=== PATIENT | female | born 1960 | race Caucasian/White ===

== ENCOUNTER 2024-06-14 14:14 | Outpatient (CLI) | payer OTHER, SELFPAY ==
--- NOTE | 2024-06-14 14:18 | US_ITS ---
FINAL REPORT CLINICAL HISTORY: claudication, DM, HTN, HLD, left rest pain, hx MS, CAD. FINDINGS: LOWER EXTREMITY SEGMENTAL PRESSURE MEASUREMENTS FINDINGS: Pressure indices are as follows: RIGHT LOWER EXTREMITY: Thigh: 1.08 Calf: 1.09 Ankle, posterior tibial artery: 0.94 Ankle, dorsalis pedis: 0.99 Toe: 0.74 GREGOR: 0.99 Comments: Within normal limits LEFT LOWER EXTREMITY: Thigh: 1.12 Calf: 1.25 Ankle, posterior tibial artery: 1.01 Ankle, dorsalis pedis: 1.0 Toe: 0.81 GREGOR: 1.03 Comments: Within normal limits IMPRESSION: No evidence of peripheral vascular disease. Reviewed, Interpreted and Dictated by Dhiraj Santo MD Transcribed by Krystal Betts Authenticated and [facility]
--- NOTE | 2024-06-14 14:18 | CA_ITS ---
APPROVED REPORT EXAM: Comprehensive 2D, Doppler, and color-flow Echocardiogram Coordinator Of Genetic Services: Kathrin Bourgeois RT(R) Ht: 5 ft 3 in Wt: 136lbs BSA: 1.64 BP: 109/67 mmHg Indications: dyspnea, HTN, hyperlipidemia, SOB, TEMPLETNO, DM. 2D Dimensions LVEF (Velasco's) 62.10 % F: 54 - 74 LV Volume 74.50 mL F: 46 - 106 LV Volume Index 45.4 mL/m2 F: 29 - 61 LA Volume 17.90 mL LA Volume Index 10.91 mL/m2 (M/F) 16-34 EF AP4 60.50 % EF AP2 60.7 % EF BP 62.1 % GL Strain -19.5 % M-Mode Dimensions RVDd 2.76 cm (0.9-2.6) LA Diam 3.47 cm (1.9-4.0) LVDd 4.08 cm (3.5-5.7) LVDs 3.08 cm (3.5-5.7) IVSd 0.88 cm (0.6-1.1) PWd 0.88 cm (0.6-1.1) EF (Teich) 49.20% FS 24.50% EDV (Teich) 73.40 mL ESV (Teich) 37.30 mL LV Diastology E Decel Time 180 (160-240 msec) E/A Ratio 0.8 Mitral Valve MV E Max Iban. 60.0 (40-130 cm/s) MV A Velocity 79.0 (40-130 cm/s) E/A Ratio 0.76 MV PHT 53.0 ms Left Ventricle The left ventricle is normal size. The left ventricular systolic function is normal. The left ventricular ejection fraction is within the normal range. There is increased LV wall thickness. There is normal LV segmental wall motion. The left ventricular diastolic function is normal. LVEF is 55%. Right Ventricle The right ventricle is mildly dilated. The right ventricular systolic function is normal. Atria TheLeft atrium is mildly dilated. Right atrium is mildly dilated. There is no Doppler evidence of interatrial shunt. Aortic Valve The aortic valve is mildly thickened. There is no aortic valvular stenosis. Trace aortic regurgitation. Mitral Valve The mitral valve is normal in structure. No evidence of mitral valve stenosis. Trace mitral regurgitation. Tricuspid Valve Tricuspid valve is grossly normal in structure and function. Trace mitral regurgitation. There is insufficient TR jet to estimate RVSP. Pulmonic Valve The pulmonary valve is normal in structure. Trace pulmonic regurgitation. Great Vessels The aortic root is normal in size. IVC is normal in size and collapses >50% with inspiration. Pericardium There is no pericardial effusion. Other Information Study Quality: Fair Conclusion Normal biventricular systolic function. Mild RV dilation. Mild biatrial dilation. No significant valvular stenosis or regurgitation. Electronically signed by : Loulou Laureano MD 06/20/2024 01:07:03
== END 2024-06-14 23:59 | disposition home or self-care (01) ==
LOC: RT 14:15
PROVIDERS: PCP Nurse Practitioner Family; Visit Provider Physician Assistant
DX: I73.9 Peripheral vascular disease, unspecified (principal); I51.7 Cardiomegaly; I25.118 Atherosclerotic heart disease of native coronary artery with other forms of angina pectoris; R06.09 Other forms of dyspnea; R07.89 Other chest pain
CPT/HCPCS: 93306; 93923

== ENCOUNTER 2024-06-21 11:34 | Outpatient (CLI) | payer OTHER, SELFPAY ==
[2024-06-21 09:42] VITALS: BMI 24.0
--- NOTE | 2024-06-21 11:34 | CT_ITS ---
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 A noncontrast coronary calcium scan was performed. A CT attenuation threshold of 130 Hounsfield units (HU) was used for the detection of calcium in contiguous voxels of 1 sq mm in area to be counted as individual lesions. Bolus tracking in the ascending aorta with a threshold of 180 HU was performed. Immediately afterwards, ECG synchronized cardiac CT was then performed from the cardiac base to apex using retrospective gating with ECG tube current modulation. A total of 85 mL of Isovue 370 mg/mL contrast medium was administered at 5 mL/sec followed by a saline flush using a biphasic injection protocol. A tube voltage of 120 KVp was used. The patient received the following medications prior to the cardiac CT. 0.4 mg of sublingual nitroglycerin The average heart rate at the time of acquisition was 58 bpm and regular. Image Reconstruction Transaxial images were reconstructed at 0.67 mm slide thickness. Data was reviewed interactively on an advanced workstation capable of 2 and 3-dimensional displays in all conventional reconstruction formats, including multiplanar reformations, maximum intensity projections, curved multiplanar reformations, and volume rendered reconstructions. When applicable, selected routine images describing the relevant coronary anatomy and pathology were saved and sent to PACS. Complications None Technical Quality Overall image quality was good. Coronary artery opacification was adequate. Total DLP (Dose-Length Product) is 1462.5 mGy-cm. The reported value represents the total of one or more individual components during the CT acquisition of this date and at this time, and as such, the same value may appear in more than one CT report depending on the interpreting/reporting physicians. COMPARISON None FINDINGS CT Coronary Calcium Scoring not performed due to prior history of stenting. The interpretation of the calcium heart score is based on the following continuum*: 0 = no calcified plaque detected (risk of coronary artery disease is very low ??? less than 5%) 1-10 = calcium detected in extremely minimal levels (risk of coronary diseases is still low ??? less than 10%) 11-100 = mild levels of plaque detected with certainty (mild or minimal narrowing of heart arteries is likely) 101-400 = definite,at least moderate levels of plaque detected (relatively high risk of a heart attack within 3-5 years) >401-999 = extensive levels of plaque detected (high risk of heart attack, high levels of vascular disease are present, high likelihood of at least one significant coronary narrowing) *The calcium heart score quantifies the burden of coronary calcification/plaque in the coronary arteries. The calcium heart score is not able to evaluate the presence or burden of non-calcified (i.e. soft) plaque. There is also calcification in the aortic valve, mitral annulus, and the ascending, transverse, and descending thoracic aorta. Coronary CT Angiography The coronary arterial system is right dominant. Quantitative Stenosis Grading: Left Main (LM): The left main originates normally from the left sinus of Valsalva. The LM bifurcates into the left anterior descending artery and left circumflex artery. There is a focus of calcified plaque in the mid LM segment, with no evidence of luminal stenosis. Left Anterior Descending (LAD) and Diagonal Branches: The LAD gives off 3 diagonal branch(es). There is a stent in the proximal segment of the LAD. The stented region is not very well-visualized, but grossly appears to be patent with no evidence of luminal obstruction. Immediately in the post stenting region and in the mid-LAD segment distal to the stent, there is mixed calcified/noncalcified plaque, with up to 50-70% luminal stenosis. There is no evidence of LAD-myocardial bridge. Left Circumflex (LCX) and Obtuse Marginals (OM): The LCX gives off 1 Obtuse Marginal (OM) branch(es). The LCX and its branches are patent with no evidence of atherosclerosis. Right Coronary Artery (RCA): The RCA originates normally from the right sinus of Valsalva. The RCA gives off a posterior descending artery (PDA) and posterolateral (PL) branches. There is mild non-calcified plaque in the ostial RCA segment, with up to 25-49% luminal stenosis. Non-Coronary Cardiac Findings: Analysis of the left ventricular (LV) structure and function was performed after 3-D reconstruction of the LV from axial images, with user-corrected automatic contouring for assessment of LV volumes and user-defined reconstruction from oblique planes for measurement of 3-D cardiac structure and function. -The left ventricle systolic function is normal. -There is no left atrial appendage filling defect. Two right pulmonary veins and two left pulmonary veins drain normally into the left atrium. -No pericardial thickening or calcification. -Central and branch pulmonary arteries in the [id number] are unremarkable. -Thoracic aorta within the visualized thoracic aortic-branches in the [id number] is unremarkable. Extracardiac Structures No significant extra-cardiac findings. Note, however, that this study is focused on the cardiac findings. IMPRESSION -Calcium scoring is not performed due to prior history of stenting. There is a stent in the proximal segment of the LAD. The stented region is not very well-visualized, but grossly appears to be patent with no evidence of luminal obstruction. Immediately in the post stenting region and in the mid-LAD segment distal to the stent, there is mixed calcified/noncalcified plaque, with up to 50-70% luminal stenosis. -There is also mild non-calcified plaque in the ostial RCA segment, with up to 25-49% luminal stenosis. -Possible evidence of significant flow-limiting atherosclerosis of the proximal/mid LAD segment distal to the stented region. -CAD-RADS 3. Management recommendations per ACC/AHA guidelines*, as clinically appropriate. *Recommendations: CAD RADS 0: Reassurance. Consider non-atherosclerotic causes of chest pain. CAD RADS 1: Consider non-atherosclerotic causes of chest pain. Consider preventive therapy and risk factor modification. CAD RADS 2: Consider non-atherosclerotic causes of chest pain. Consider preventive therapy and risk factor modification, particularly for patients with nonobstructive plaque in multiple segments. CAD RADS 3: Consider further functional testing. Consider symptom-guided anti-ischemic and preventive pharmacotherapy as well as risk factor modification per published guideline statements. CAD RADS 4A: Consider further functional testing or invasive coronary angiography with revascularization per published guideline statements. Consider symptom-guided anti-ischemic and preventive pharmacotherapy as well as risk factor modification per published guideline statements. CAD RADS 4B: Invasive coronary angiography recommended with revascularization per published guideline statements. Consider symptom-guided anti-ischemic and preventive pharmacotherapy as well as risk factor modification per published guideline statements. CAD RADS 5: Consider invasive angiography and/or viability assessment with revascularization per published guideline statements. Consider symptom-guided anti-ischemic and preventive pharmacotherapy as well as risk factor modification per published guideline statements. CRITICAL RESULT None COMMUNICATION Per this written report The coronary and cardiac findings of this CCTA were reviewed, reported, and signed by Fercho Laureano MD (Pharmacy General Manager) Conclusion Electronically signed by : Loulou Laureano MD 06/23/2024 12:01:24
[2024-06-21 11:47] VITALS: BP 135/75; PULSE 59; RESP 18; TEMP 36.5; O2SAT 100; BMI 24.0
[2024-06-21 12:00] LABS: Chloride 101 mmol/L (98-107); Sodium 138 mmol/L (136-145)
[2024-06-21 12:01] LABS: Potassium 4.7 mmoL/L (3.5-5.1)
[2024-06-21 12:03] LABS: Blood Urea Nitrogen 15 mg/dl (7-17); Creatinine Clearance Estimated 50 mL/min (50-200); Estimated Glomerular Filt Rate 50 ml/min (>60); GFR (African American) 61 ML/MIN (>60)
[2024-06-21 12:04] LABS: Anion Gap 13.7 mEq/L (5-15); Calcium 9.6 mg/dl (8.4-10.2); Carbon Dioxide 28 mmol/L (22.0-30.0); Glucose 98 mg/dl (74-100)
[2024-06-21 13:05] VITALS: BP 155/85; PULSE 60; RESP 18; O2SAT 100
[2024-06-21] MEDS: NITROGLYCERIN 0.4MG SL TABLET SL (13:05)
[2024-06-21 13:10] VITALS: BP 133/73; PULSE 60; RESP 18; O2SAT 100
[2024-06-21] MEDS: SODIUM CHLORIDE 0.9% 10ML SYR (RAD ONLY) 10 ML IV (13:10)
[2024-06-21] MEDS: IOPAMIDOL-370 (76%);100ML BOTTLE 85 ML IV (13:10)
[2024-06-21] MEDS: 0.9 % SODIUM CHLORIDE 50 ML VIAL IV (13:11)
[2024-06-21 13:20] VITALS: BP 100/60; PULSE 65; RESP 18; O2SAT 95
[2024-06-21 13:25] VITALS: BP 106/62; PULSE 65; RESP 18; O2SAT 95
== END 2024-06-21 13:25 | disposition home or self-care (01) ==
PROVIDERS: PCP Nurse Practitioner Family; Visit Provider Physician Assistant
DX: I25.118 Atherosclerotic heart disease of native coronary artery with other forms of angina pectoris (principal); R06.09 Other forms of dyspnea; R07.89 Other chest pain
CPT/HCPCS: 75574; 80048; Q9967

== ENCOUNTER 2024-07-07 11:44 | Emergency (ER) | payer OTHER, SELFPAY ==
[2024-07-07] VITALS (8 sets, daily range): BP systolic 129–173; BP diastolic 46–76; PULSE 56–67; RESP 12–19; TEMP 36.7–36.8; O2SAT 98–100; BMI 23.6
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
[2024-07-07 12:42] LABS: Appearance,Urine CLEAR (Clear); Bilirubin,Urine Negative (Negative); Blood, Urine Negative (Negative); Color,Urine YELLOW (Yellow); Glucose,Urine (UA) TRACE (Negative); Ketones,Urine Negative (Negative); Leukocyte Esterase,Urine 2+ (Negative); Microscopic, Urine URINE MICROSCOPIC (MICROSCOPIC); Nitrate,Urine Negative (Negative); Protein,Urine Negative (Negative); Specific Gravity, Urine >= 1.030 (1.005-1.030); Urobilinogen,Urine 0.2 EU/dl (0.2)
[2024-07-07 12:42] LABS: Basophils % 0.5 % (0.1-2.0); Eosinophils # 0.1 K/mm3 (0.0-0.4); Eosinophils % 0.8 % (0.1-12.0); Hematocrit 42.5 % (37.0-47.0); Hemoglobin 13.9 g/dL (12.2-16.2); Lymphocytes # 2.1 K/mm3 (0.7-4.5); Lymphocytes % 32.4 % (10-50); Mean Corpuscular HGB Conc 32.7 g/dL (31.8-35.4); Mean Corpuscular Hemoglobin 28.7 pg (27.0-31.2); Mean Corpuscular Volume 87.6 fl (81-99); Mean Platelet Volume 10.1 fl (7.4-10.4); Monocytes # 0.5 K/mm3 (0.1-1.0); Monocytes % 7.9 % (1.7-9.3); Neutrophils # 3.8 K/mm3 (1.8-7.8); Neutrophils % 58.1 % (37.0-80.0); Platelet Count 284 K/mm3 (142-424); Red Blood Count 4.85 M/mm3 (4.20-5.40); Red Cell Distribution Width 13.2 % (11.5-17.5); White Blood Count 6.5 K/mm3 (4.8-10.8)
--- NOTE | 2024-07-07 12:42 | ECG_ITS ---
APPROVED REPORT Exam: Resting ECG HR:59 bpm ECG Measurements Heart Rate 59 AXES RI 159 P 39 QRSd 105 QRS -14 QT 399 T 44 QTc 399 Conclusion SINUS BRADYCARDIA BORDERLINE ECG UNCONFIRMED REPORT Electronically signed by : RHODA COREA, 07/08/2024 06:56:27
[2024-07-07] MEDS: 0.9 % SODIUM CHLORIDE 1000ML 1,000 ML 999 ML IV (12:48)
[2024-07-07 12:52] LABS: INR 0.95 (0.9-1.1); Prothrombin Time 10.7 seconds (10.1-12.5)
[2024-07-07 12:59] LABS: Alanine Aminotransferase 16 U/L (12-78); Albumin/Globulin Ratio 1.7 (1.1-1.8); Alkaline Phosphatase 58 U/L (38-126); Anion Gap 14.2 mEq/L (5-15); Aspartate Amino Transferase 30 U/L (14-36); Bilirubin,Total 0.4 mg/dl (0.2-1.3); Blood Urea Nitrogen 23 mg/dl (7-17); Calcium 9.8 mg/dl (8.4-10.2); Carbon Dioxide 27 mmol/L (22.0-30.0); Chloride 104 mmol/L (98-107); Creatinine Clearance Estimated 54 mL/min (50-200); Estimated Glomerular Filt Rate 63 ml/min (>60); GFR (African American) 76 ML/MIN (>60); Globulin 2.9 g/dL (1.3-3.2); Glucose 115 mg/dl (74-100); Lipase 329 U/L (23-300); Magnesium 1.4 mg/dl (1.6-2.3); Potassium 4.2 mmoL/L (3.5-5.1); Sodium 141 mmol/L (136-145); Total Protein,Serum 7.9 g/dl (6.3-8.2)
[2024-07-07 13:05] LABS: Amphetamine/Metha Screen,Urine Negative ng/ml (<1000)
[2024-07-07 13:06] LABS: Barbiturates Screen,Urine Negative ng/ml (<200); Benzodiazepines Screen,Urine Negative ng/ml (<200)
[2024-07-07 13:07] LABS: Acetaminophen < 10 ug/ml (10-30); Cannabinoid Screen,Urine Negative ng/ml (<50); Cocaine Screen,Urine Negative ng/ml (<300); Salicylate < 1.0 mg/dL (2.0-20.0)
[2024-07-07 13:08] LABS: Ethyl Alcohol < 10 mg/dl (0-10); Methadone Screen,Urine Negative ng/ml (<300)
[2024-07-07 13:09] LABS: Opiate Screen,Urine Negative ng/ml (<300); Phencyclidine Screen,Urine Negative ng/ml (<25)
[2024-07-07 13:11] LABS: Ammonia < 9 umol/L (9-30)
[2024-07-07 13:16] LABS: Procalcitonin 0.081 ng/mL (0.0-2.0)
--- NOTE | 2024-07-07 13:16 | CT_ITS ---
FINAL REPORT TECHNIQUE: IV contrast enhanced exam This study was performed with techniques to keep radiation doses as low as reasonably achievable, (ALARA). Individualized dose reduction techniques using automated exposure control or adjustment of mA and/or kV according to the patient''s size were employed. CLINICAL HISTORY: Elevated lipase, altered mental status FINDINGS: Abdomen: No acute density is seen within the lung bases. The gallbladder is unremarkable. Solid abdominal organs are unremarkable. Specifically, there are no CT changes of pancreatitis. No bowel obstruction is present. There is no free air. No fluid collection is seen. There is no adenopathy. Pelvis: The appendix is normal. No bowel wall thickening is present. The uterus is retroverted. There is no free fluid. No pelvic mass is seen. IMPRESSION: No CT findings of pancreatitis or other acute process. Reviewed, Interpreted and Dictated by Dhiraj Santo MD Transcribed by Princess Dee Authenticated and [facility]
[2024-07-07 13:17] LABS: Free Thyroxine Index 3.5 ug/dL (5.93-13.13); T4 (Thyroxine) 12.6 ug/dl (5.53-11.0); Triiodothryronine (T3) Uptake 28 % (23.5-40.5); Troponin I < 0.01 ng/ml (0.00-0.034)
[2024-07-07 13:17] LABS: RBC,Urine Occasional #/hpf (0-3); Transitional Epi Cells,Urine OCC #/lpf (0-3)
[2024-07-07 13:31] LABS: Thyroid Stimulating Hormone 2.24 uIU/mL (0.465-4.68)
[2024-07-07] MEDS: SODIUM CHLORIDE 0.9% 10ML SYR (RAD ONLY) 10 ML IV (13:31)
[2024-07-07] MEDS: IOPAMIDOL-370 (76%);100ML BOTTLE 75 ML IV (13:32)
[2024-07-07] MEDS: MAGNESIUM SULFATE IN WATER 2 GM/50 ML PIGGYBACK IV (13:35)
[2024-07-07 14:18] LABS: HIV Combo NEGATIVE (Negative)
[2024-07-07 14:27] LABS: Hepatitis C Ab Qual. W/ RFX NEGATIVE (Negative)
== END 2024-07-07 14:45 | disposition home or self-care (01) ==
PROVIDERS: Physician Assistant; Emergency Provider Emergency Medicine; PCP Nurse Practitioner Family
DX: G93.40 Encephalopathy, unspecified (principal); R41.82 Altered mental status, unspecified; V87.7XXA Person injured in collision between other specified motor vehicles (traffic), initial encounter
CPT/HCPCS: 70450; 72125; 74177; 80053; 80307; 80320; 80329; 81001; 82140; 83690; 83735; 84145; 84436; 84443; 84479; 84484; 85025; 85610; 86803; 87086; 87389; 93005; 96361; 96365; 99291; G0480; J3475; J7030; Q9967

== ENCOUNTER 2024-07-12 08:41 | Day surgery (SDC) | payer OTHER, SELFPAY ==
[2024-07-12] VITALS (15 sets, daily range): BP systolic 120–146; BP diastolic 73–87; PULSE 64–75; RESP 16–20; TEMP 36.7; O2SAT 93–100; BMI 23.9
--- NOTE | 2024-07-12 07:22 | IR_ITS ---
APPROVED REPORT [facility] Director: LUKE Perez RT (R) PROCEDURES Left heart catheterization Left ventriculogram Selective coronary angiogram Drug-eluting stent deployment to the proximal and mid circumflex artery Intravascular ultrasound of the LAD Drug-eluting stent deployment to the proximal and mid LAD INDICATION Coronary artery disease, Angina pectoris, LAD IVUS MLA of 3.3 mm???, Underexpanded stent in the proximal LAD Informed consent was obtained prior to the procedure. COMPLICATIONS NONE Estimated Blood Loss: LESS THAN 10 ML TECHNIQUE One percent lidocaine used to anesthetize the right anterior aspect of the wrist. The right radial artery was accessed via the Seldinger technique. A 6 Danish sheath was placed in the right radial artery. 2.5 mg of Verapamil, 800 mcg of nitroglycerin, 1mg Lidocaine and 5000 U Heparin were given through the arterial sheath. The 6 Danish JL 3 guide catheter was also used to perform left heart catheterization, left ventriculogram and selective coronary angiogram. At the end the diagnostic angiogram therapeutic heparin was administered giving a therapeutic ACT and the guide catheter was placed in left main artery followed by Choice PT after support wire down the circumflex artery. A 2.25 x 26 mm Ostrander frontier stent was deployed at 18 diana reducing the stenosis to 0%. BRETT-3 flow was present before and after the procedure. Excellent angiograph results were obtained. Following this the wire was pulled back and placed into the LAD where intravascular ultrasound probe was advanced. The stent in the proximal segment was significantly undersized with poor apposition to the vessel wall. There was additional moderate to severe plaque distal with an MLA of 3.3 mm???. Because of this a 3 mm x 34 mm Daniel frontier stent was deployed at 18 diana in the proximal LAD reducing the stenosis. An additional 3.0 x 26 mm Daniel frontier stent was placed proximal to this extending back into the ostium of the LAD and deployed at 24 diana reducing the stenosis to 0%. BRETT-3 flow was present before and after the procedure. 800 mcg of intracoronary nitroglycerin was administered after the procedure after achieving excellent angiograph results the apparatus was removed the sheath was removed and hemostasis was achieved using TR banding patient was transferred to the postop putting in stable condition ANGIOGRAPHIC RESULTS The left main artery Normal The left anterior descending artery Has a stent in the ostial proximal segment which is significantly undersized. There are additional proximal angiographic indeterminant stenoses between 50 and 70% which proved to be tighter with IVUS. There are additional 30% mid vessel stenoses The circumflex artery Nondominant and has proximal to mid vessel 70% stenosis The right coronary artery Large dominant normal The AVELAR ventriculogram reveals Normal 65% The left ventricular end-diastolic pressure 15 mmHg IMPRESSION Severe disease in the proximal LAD as described above with successful stenting reducing multiple lesions and dilating a previous stent to a larger lumen with 2 contiguous drug-eluting stents Severe disease in the proximal to mid circumflex artery with successful stenting reducing lesion to 0% with 1 drug-eluting stent Normal ejection fraction Normal LVEDP PLAN 1. Dual antiplatelet therapy 2. Add Imdur 30 mg daily 3. LDL less than 55 to be achieved with high intensity statin 4. Avoidance of tobacco products 5. Cardiac rehabilitation Electronically signed by : Usman Dowling MD 07/12/2024 12:08:14
[2024-07-12 09:14] LABS: Basophils % 0.4 % (0.1-2.0); Eosinophils # 0.1 K/mm3 (0.0-0.4); Eosinophils % 0.7 % (0.1-12.0); Hematocrit 40.9 % (37.0-47.0); Hemoglobin 13.6 g/dL (12.2-16.2); Lymphocytes # 2.4 K/mm3 (0.7-4.5); Lymphocytes % 34.6 % (10-50); Mean Corpuscular HGB Conc 33.3 g/dL (31.8-35.4); Mean Corpuscular Hemoglobin 29.2 pg (27.0-31.2); Mean Corpuscular Volume 87.8 fl (81-99); Mean Platelet Volume 9.9 fl (7.4-10.4); Monocytes # 0.5 K/mm3 (0.1-1.0); Platelet Count 255 K/mm3 (142-424); Red Blood Count 4.66 M/mm3 (4.20-5.40); Red Cell Distribution Width 13.3 % (11.5-17.5)
[2024-07-12 09:22] LABS: Chloride 104 mmol/L (98-107); Sodium 141 mmol/L (136-145)
[2024-07-12 09:25] LABS: Blood Urea Nitrogen 14 mg/dl (7-17); Calcium 9.6 mg/dl (8.4-10.2); Carbon Dioxide 29 mmol/L (22.0-30.0); Creatinine Clearance Estimated 55 mL/min (50-200); Estimated Glomerular Filt Rate 56 ml/min (>60); GFR (African American) 68 ML/MIN (>60); Glucose 86 mg/dl (74-100)
[2024-07-12] MEDS: VERAPAMIL 2.5MG/ML 2ML VIAL 2.5 MG IV (11:05)
[2024-07-12] MEDS: HEPARIN 1,000 UNITS/500ML NS (CATH LAB) 3000 UNIT IV (11:05)
[2024-07-12] MEDS: diphenhydrAMINE 50MG/ML VIAL 50 MG IV (11:05)
[2024-07-12] MEDS: LIDOCAINE 1% 10ML MDV 20 ML IJ (11:06)
[2024-07-12] MEDS: HEPARIN 1,000 UNITS/ML 10ML VIAL (CATH LAB) 10000 UNIT IV (11:06)
[2024-07-12] MEDS: NITROGLYCERIN 800MCG/8ML SYR (CATH LAB) 800 MCG IA (11:06)
[2024-07-12] MEDS: 0.9 % SODIUM CHLORIDE 500 ML 25 ML IV (11:06)
[2024-07-12] MEDS: MIDAZOLAM HCL 1MG/ML 5ML VIAL 1 MG IV (11:08)
[2024-07-12] MEDS: FENTANYL 100MCG/2ML VIAL 25 MCG IV (11:08)
[2024-07-12] MEDS: CLOPIDOGREL 75MG TAB 75 MG PO (12:13)
[2024-07-12] MEDS: IOPAMIDOL-370 (76%);100ML BOTTLE 120 ML IV (13:29)
[2024-07-12 13:37] LABS: CATHL Activated Clotting Time 306 SEC (74-125)
--- NOTE | 2024-07-12 15:15 | SUR.PHASEII ---
Upon d/c pt and putting her in a wheelchair pt began to c/o seeing double vision, pupils sluggish to reaction and uneven, Dr Dowling notified, stated to order stat head ct and notify dr monge of admission. Pt denies any other s/s, has no noticeable deficits, hand placing judge equal, ataxia in intact. VSS, see chart.
--- NOTE | 2024-07-12 15:25 | CT_ITS ---
FINAL REPORT TECHNIQUE: Axial CT images were performed through the head. Coronal reformatted images were submitted. This study was performed with techniques to keep radiation doses as low as reasonably achievable (ALARA). Individualized dose reduction techniques using automated exposure control or adjustment of mA and/or kV according to the patient's size were employed. CLINICAL HISTORY: double vision post cath, possible stroke COMPARISON: 07/07/2024 FINDINGS: Mild atrophy is noted. There is no evidence of hemorrhage. There is no mass or edema identified. There is no abnormal extra-axial fluid seen. There are polyps or retention cysts in the maxillary sinuses consistent with chronic sinusitis. IMPRESSION: No acute intracranial process. Mild atrophy. Chronic sinusitis. Reviewed, Interpreted and Dictated by Mk Billy MD Transcribed by Krystal Betts Authenticated and [facility]
--- NOTE | 2024-07-12 15:25 | SUR.PHASEII ---
notified rad of head ct
--- NOTE | 2024-07-12 15:30 | SUR.PHASEII ---
Pt to stat head ct at this time
[2024-07-12 15:37] LABS: POC Glucose,Bedside 76 (70-110)
--- NOTE | 2024-07-12 15:51 | SUR.PHASEII ---
Danielito called to notify that pt was sent to the ED after ct, son directed to ED
== END 2024-07-12 15:54 | disposition home or self-care (01) ==
PROVIDERS: Visit Provider Internal Medicine
DX: I25.118 Atherosclerotic heart disease of native coronary artery with other forms of angina pectoris (principal); I77.1 Stricture of artery; I12.9 Hypertensive chronic kidney disease with stage 1 through stage 4 chronic kidney disease, or unspecified chronic kidney disease; E78.5 Hyperlipidemia, unspecified; I25.2 Old myocardial infarction; N18.30 Chronic kidney disease, stage 3 unspecified; E11.9 Type 2 diabetes mellitus without complications; R06.02 Shortness of breath; Z82.49 Family history of ischemic heart disease and other diseases of the circulatory system; Z95.5 Presence of coronary angioplasty implant and graft; Z79.84 Long term (current) use of oral hypoglycemic drugs; Z79.01 Long term (current) use of anticoagulants; Z79.85 Long-term (current) use of injectable non-insulin antidiabetic drugs; Z79.899 Other long term (current) drug therapy; Z79.82 Long term (current) use of aspirin; Z83.3 Family history of diabetes mellitus; Z80.9 Family history of malignant neoplasm, unspecified
CPT/HCPCS: 70450; 80048; 82962; 85025; 85347; 92928; 92978; 93458; 99152; 99153; C1725; C1769; C1874; C9600; J1200; J1644; J3010; Q9967

== ENCOUNTER 2024-07-12 15:52 | Emergency (ER) | payer OTHER, SELFPAY ==
[2024-07-12] VITALS (11 sets, daily range): BP systolic 142–168; BP diastolic 56–88; PULSE 60–70; RESP 12–20; TEMP 36.5; O2SAT 98–100; BMI 19.5; BMI 23.8
--- NOTE | 2024-07-12 15:53 | CT_ITS ---
PROCEDURE INFORMATION: Exam: CTA Neck With Contrast Exam date and time: 07/12/2024 3:02 PM Age: 64 years old Clinical indication: Stroke-like symptoms; Visual disturbance; Additional info: Possible stroke TECHNIQUE: Imaging protocol: Computed tomographic angiography of the neck with contrast. Exam focused on the cervical segments of the vasculature. 3D rendering (Not supervised by radiologist): MIP and/or 3D reconstructed images were created by the technologist. Radiation optimization: All CT scans at this facility use at least one of these dose optimization techniques: automated exposure control; mA and/or kV adjustment per patient size (includes targeted exams where dose is matched to clinical indication); or iterative reconstruction. Contrast material: ISOVUE 370; Contrast volume: 80 ml; Contrast route: INTRAVENOUS (IV); COMPARISON: CT CERVICAL SPINE WO CON 07/07/2024 1:12 PM FINDINGS: Right common carotid artery: The right common carotid artery shows no evidence of significant stenosis. Right internal carotid artery: The right internal carotid artery shows no evidence of significant stenosis. Right external carotid artery: The right external carotid artery shows no evidence of significant stenosis. Left common carotid artery: The left common carotid artery shows no evidence of significant stenosis. Left internal carotid artery: Severe calcified and noncalcified plaque at the proximal left internal carotid artery, causing up to 50% luminal stenosis. Remainder of the left internal carotid artery is patent and without stenosis. Left external carotid artery: The left external carotid artery shows no evidence of significant stenosis. Right vertebral artery: Right vertebral artery is patent and without stenosis or occlusion. Left vertebral artery: Left vertebral artery is patent and without stenosis or occlusion. Thyroid: The thyroid gland is normal. Soft tissues: No acute soft tissue findings. Bones/joints: No acute skeletal abnormality or aggressive osseous lesion. Trachea: Airways are patent. Lungs: No acute findings in the lung apices. IMPRESSION: Severe calcified and noncalcified plaque at the proximal left internal carotid artery, causing up to 50% luminal stenosis. COMMENTS: THIS REPORT CONTAINS FINDINGS THAT MAY BE CRITICAL TO PATIENT CARE. The findings were verbally communicated via telephone conference with Dr. Gagan Beltran at 4:29 PM EDT on 07/12/2024. The findings were acknowledged and understood. REFERENCES: NASCET CRITERIA. The degree of stenosis in the cervical segment of the internal carotid artery is based on NASCET criteria. Normal is no stenosis. Mild is less than 50% stenosis. Moderate is 50-69% stenosis. Severe is 70% to 99% stenosis. Total occlusion is no detectable patent lumen.
--- NOTE | 2024-07-12 15:53 | CT_ITS ---
PROCEDURE INFORMATION: Exam: CTA Head With Contrast, Arteriography Exam date and time: 07/12/2024 3:02 PM Age: 64 years old Clinical indication: Stroke-like symptoms; Visual disturbance; Additional info: Possible stroke TECHNIQUE: Imaging protocol: Computed tomographic angiography of the head with contrast. Exam focused on the arteries. 3D rendering (Not supervised by radiologist): MIP and/or 3D reconstructed images were created by the technologist. Radiation optimization: All CT scans at this facility use at least one of these dose optimization techniques: automated exposure control; mA and/or kV adjustment per patient size (includes targeted exams where dose is matched to clinical indication); or iterative reconstruction. Contrast material: ISOVUE 370; Contrast volume: 80 ml; Contrast route: INTRAVENOUS (IV); COMPARISON: CT HEAD/BRAIN WO CON 07/07/2024 1:10 PM FINDINGS: ANTERIOR CIRCULATION: Right internal carotid artery: The right internal carotid artery shows no evidence of significant stenosis. Right middle cerebral artery: Right middle cerebral artery is patent and without stenosis or occlusion. Right anterior cerebral artery: Right anterior cerebral artery is patent and without stenosis or occlusion. Left internal carotid artery: The left internal carotid artery shows no evidence of significant stenosis. Left middle cerebral artery: Left middle cerebral artery is patent and without stenosis or occlusion. Left anterior cerebral artery: Left anterior cerebral artery is patent and without stenosis or occlusion. POSTERIOR CIRCULATION: Right vertebral artery: Right vertebral artery is patent and without stenosis or occlusion. Left vertebral artery: Left vertebral artery is patent and without stenosis or occlusion. Basilar artery: Basilar artery is patent and without stenosis or occlusion. Right posterior cerebral artery: Right posterior cerebral artery is patent and without stenosis or occlusion. Left posterior cerebral artery: Left posterior cerebral artery is patent and without stenosis or occlusion. Brain: No significant intracranial hemorrhage or mass effect. Cerebral ventricles: The ventricular system is normal in size and distribution. Orbital cavities: Bilateral intraocular lens replacements. Mastoid air cells: The mastoid sinuses are clear. Paranasal sinuses: Small retention cysts in the inferior segments of the maxillary sinuses. Remainder of the paranasal sinuses are clear. Bones/joints: No acute skeletal abnormality or aggressive osseous lesion. Soft tissues: Right nasal piercing. No acute soft tissue findings. IMPRESSION: No large vessel stenosis or occlusion.
--- NOTE | 2024-07-12 15:53 | ECG_ITS ---
APPROVED REPORT Exam: Resting ECG HR:63 bpm ECG Measurements Heart Rate 63 AXES MI 153 P 55 QRSd 100 QRS 8 QT 404 T 36 QTc 411 Conclusion SINUS RHYTHM NORMAL ECG Electronically signed by : ABEBA MORRIS, 07/12/2024 23:44:57
--- NOTE | 2024-07-12 15:55 | PC.NURSE ---
GLUCOSE IS 69
--- NOTE | 2024-07-12 15:58 | PC.NURSE ---
Pt is going to CT scan- Stroke protocol
[2024-07-12] MEDS: DEXTROSE 50% 50ML SYRINGE (CRASH CART) 50 ML IVP (16:00)
--- NOTE | 2024-07-12 16:06 | PC.NURSE ---
CALLED [facility] PER TO SPEAK WITH STROKE TEAM REGARDING PT FOR AN NIHSS 4,DIPOLPIA, LEFT LEG WEAKNESS, DICOORDINATION
--- NOTE | 2024-07-12 16:07 | PC.NURSE ---
SPEAKING WITH [facility] STROKE TEAM AT THIS TIME
[2024-07-12] MEDS: SODIUM CHLORIDE 0.9% 10ML SYR (RAD ONLY) 10 ML IV (16:08)
[2024-07-12] MEDS: IOPAMIDOL-370 (76%);100ML BOTTLE 80 ML IV (16:08)
[2024-07-12] MEDS: 0.9 % SODIUM CHLORIDE 50 ML VIAL IV (16:08)
--- NOTE | 2024-07-12 16:10 | PC.NURSE ---
Pt back in room from ct scan
[2024-07-12 16:19] LABS: Basophils % 0.5 % (0.1-2.0); Eosinophils % 0.9 % (0.1-12.0); Hematocrit 29.6 % (37.0-47.0); Lymphocytes % 45.9 % (10-50); Mean Corpuscular HGB Conc 32.8 g/dL (31.8-35.4); Mean Corpuscular Hemoglobin 28.9 pg (27.0-31.2); Mean Corpuscular Volume 88.1 fl (81-99); Mean Platelet Volume 10.2 fl (7.4-10.4); Monocytes # 0.2 K/mm3 (0.1-1.0); Monocytes % 3.4 % (1.7-9.3); Neutrophils # 2.2 K/mm3 (1.8-7.8); Neutrophils % 49.1 % (37.0-80.0); Platelet Count 167 K/mm3 (142-424); Red Blood Count 3.36 M/mm3 (4.20-5.40); Red Cell Distribution Width 13.2 % (11.5-17.5); White Blood Count 4.4 K/mm3 (4.8-10.8)
--- NOTE | 2024-07-12 16:21 | PC.NURSE ---
Dr Gee is s/w pt at bedside
[2024-07-12 16:25] LABS: Albumin Level 3.3 g/dl (3.5-5.0); Chloride 103 mmol/L (98-107); Sodium 131 mmol/L (136-145)
[2024-07-12 16:27] LABS: Blood Urea Nitrogen 14 mg/dl (7-17); Estimated Glomerular Filt Rate 63 ml/min (>60); GFR (African American) 76 ML/MIN (>60)
[2024-07-12 16:28] LABS: Alanine Aminotransferase 11 U/L (12-78); Albumin/Globulin Ratio 1.6 (1.1-1.8); Alkaline Phosphatase 49 U/L (38-126); Aspartate Amino Transferase 19 U/L (14-36); Bilirubin,Total 0.3 mg/dl (0.2-1.3); Calcium 8.1 mg/dl (8.4-10.2); Carbon Dioxide 26 mmol/L (22.0-30.0); Cholesterol 130 mg/dl (140-200); Globulin 2.1 g/dL (1.3-3.2); Glucose 230 mg/dl (74-100); Total Protein,Serum 5.4 g/dl (6.3-8.2); Triglycerides 109 mg/dl (30-150); VLDL Cholesterol 22 mg/dL (0-40)
[2024-07-12 16:29] LABS: Chol/HDL Ratio 3.7 (1-3.5); HDL Cholesterol 35 mg/dl (40-60)
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
[2024-07-12 16:32] LABS: Activated Partial Thrombo Time 29.2 seconds (22.8-30.6); INR 1.04 (0.9-1.1); Prothrombin Time 11.6 seconds (10.1-12.5)
[2024-07-12 16:38] LABS: Microscopic, Urine URINE MICROSCOPIC (MICROSCOPIC)
[2024-07-12 16:40] LABS: Direct LDL Cholesterol 65.18 mg/dL (100-129)
[2024-07-12 16:42] LABS: Troponin I 0.02 ng/ml (0.00-0.034)
--- NOTE | 2024-07-12 16:45 | PC.NURSE ---
PT WAS ASSISTED BY MYSELF AND COASTAL AND ESTUARY SPECIALIST NICOLE Estrada TO USE BEDSIDE COMMODE AND BACK TO BED, UA SAMPLE WAS COLLECTED AT THIS TIME
[2024-07-12 16:53] LABS: Ethyl Alcohol < 10 mg/dl (0-10)
[2024-07-12 16:58] LABS: Benzodiazepines Screen,Urine Positive ng/ml (<200)
[2024-07-12 16:59] LABS: Amphetamine/Metha Screen,Urine Negative ng/ml (<1000)
[2024-07-12 17:00] LABS: Cannabinoid Screen,Urine Negative ng/ml (<50); Methadone Screen,Urine Negative ng/ml (<300)
[2024-07-12 17:01] LABS: Cocaine Screen,Urine Negative ng/ml (<300)
[2024-07-12 17:02] LABS: Opiate Screen,Urine Negative ng/ml (<300); Phencyclidine Screen,Urine Negative ng/ml (<25)
[2024-07-12] MEDS: TENECTEPLASE 50MG VIAL 15.25 MG IV (17:02)
[2024-07-12 17:07] LABS: Barbiturates Screen,Urine Negative ng/ml (<200)
--- NOTE | 2024-07-12 17:14 | PC.NURSE ---
Calling [facility] for possible transfer to [facility]
[2024-07-12 17:18] LABS: Hemoglobin 9.7 g/dL (12.2-16.2)
--- NOTE | 2024-07-12 17:24 | PC.NURSE ---
SPEAKING WITH LUKAS AT THIS TIME
[2024-07-12 17:37] LABS: Appearance,Urine Clear (Clear); Color,Urine Yellow (Yellow)
[2024-07-12 17:38] LABS: Bacteria,Urine Trace /lpf; Bilirubin,Urine Negative (Negative); Blood, Urine Trace (Negative); Glucose,Urine (UA) 1+ (Negative); Ketones,Urine Negative (Negative); Leukocyte Esterase,Urine Trace (Negative); Nitrate,Urine Negative (Negative); PH,Urine 5.5 (5.0-8.5); Protein,Urine Negative (Negative); RBC,Urine Occasional #/hpf (0-3); Squamous Epithelial Cell,Urine Occasional #/hpf (0-5); Urobilinogen,Urine 0.2 EU/dl (0.2)
[2024-07-12] MEDS: diazePAM 10MG/2ML SYRINGE 2 MG IV (17:50)
--- NOTE | 2024-07-12 18:06 | PC.NURSE ---
At 1750- Assessing pt and she c/o R wrist feeling hot . When I looked at wrist, her gauze and dressing were soaked and having an active strong bleed. I immediately began to hold pressure to R wrist. Then Called for nursing assistance and MD to re-evaluate. Dr Gee and nursing staff at bedside. Will maintain to holding manual pressure and obtain cath-lab tracelet. At 1758- Tracelet applied, air instilled, and wrist immobilization device applied. [facility] also arrived, report given by Dr Gee and Chacha.
[2024-07-12 18:23] LABS: Hepatitis C Ab Qual. W/ RFX NEGATIVE (Negative)
[2024-07-13 00:59] LABS: HIV Combo NEGATIVE (Negative)
--- NOTE | 2024-07-14 08:46 | PC.NURSE ---
URINE CULTURE FAXED TO [phone]
--- NOTE | 2024-07-15 13:20 | PC.NURSE ---
NEW URINE CULTURE FAXED TO AT [phone]
== END 2024-07-12 18:06 | disposition short-term general hospital (02) ==
PROVIDERS: Emergency Provider Emergency Medicine
DX: I63.9 Cerebral infarction, unspecified (principal); H53.2 Diplopia; R27.8 Other lack of coordination; D64.9 Anemia, unspecified; R07.9 Chest pain, unspecified; I10 Essential (primary) hypertension; E78.5 Hyperlipidemia, unspecified; E11.9 Type 2 diabetes mellitus without complications; I25.10 Atherosclerotic heart disease of native coronary artery without angina pectoris
CPT/HCPCS: 70496; 70498; 80053; 80061; 80307; 80320; 81001; 84484; 85025; 85610; 85730; 86803; 87086; 87088; 87186; 87389; 93005; 96374; 96375; 99291; J3101; J3360; Q9967

== ENCOUNTER 2024-07-20 10:44 | Outpatient (CLI) | payer OTHER, SELFPAY | END 2024-07-20 23:59 | disposition home or self-care (01) | PROVIDERS: PCP Nurse Practitioner Family; Visit Provider Nurse Practitioner Family | DX: R94.31 Abnormal electrocardiogram [ECG] [EKG] (principal); I10 Essential (primary) hypertension; I25.10 Atherosclerotic heart disease of native coronary artery without angina pectoris; I63.9 Cerebral infarction, unspecified | CPT/HCPCS: 93270; 93272 ==

== ENCOUNTER 2024-08-03 11:54 | Outpatient (CLI) | payer OTHER, SELFPAY ==
[2024-08-03 12:50] LABS: Basophils % 0.3 % (0.1-2.0); Eosinophils # 0.1 K/mm3 (0.0-0.4); Eosinophils % 0.8 % (0.1-12.0); Hemoglobin 13.2 g/dL (12.2-16.2); Lymphocytes # 2.1 K/mm3 (0.7-4.5); Lymphocytes % 28.6 % (10-50); Mean Corpuscular Hemoglobin 29.3 pg (27.0-31.2); Mean Corpuscular Volume 88.7 fl (81-99); Mean Platelet Volume 10.3 fl (7.4-10.4); Monocytes # 0.6 K/mm3 (0.1-1.0); Monocytes % 7.8 % (1.7-9.3); Neutrophils # 4.6 K/mm3 (1.8-7.8); Neutrophils % 61.6 % (37.0-80.0); Platelet Count 286 K/mm3 (142-424); Red Blood Count 4.51 M/mm3 (4.20-5.40); Red Cell Distribution Width 12.4 % (11.5-17.5); White Blood Count 7.4 K/mm3 (4.8-10.8)
[2024-08-03 13:25] LABS: Albumin Level 4.7 g/dl (3.5-5.0); Chloride 101 mmol/L (98-107); Potassium 5.5 mmoL/L (3.5-5.1); Sodium 140 mmol/L (136-145)
[2024-08-03 13:28] LABS: Alanine Aminotransferase 13 U/L (12-78); Albumin/Globulin Ratio 1.7 (1.1-1.8); Alkaline Phosphatase 72 U/L (38-126); Anion Gap 16.5 mEq/L (5-15); Aspartate Amino Transferase 24 U/L (14-36); Bilirubin,Total 0.6 mg/dl (0.2-1.3); Blood Urea Nitrogen 25 mg/dl (7-17); Calcium 9.8 mg/dl (8.4-10.2); Carbon Dioxide 28 mmol/L (22.0-30.0); Estimated Glomerular Filt Rate 56 ml/min (>60); GFR (African American) 68 ML/MIN (>60); Globulin 2.8 g/dL (1.3-3.2); Glucose 106 mg/dl (74-100); Total Protein,Serum 7.5 g/dl (6.3-8.2)
== END 2024-08-03 23:59 | disposition home or self-care (01) ==
LOC: LAB 11:54
PROVIDERS: PCP Nurse Practitioner Family; Visit Provider Physician Assistant
DX: I25.118 Atherosclerotic heart disease of native coronary artery with other forms of angina pectoris (principal); R53.83 Other fatigue; D64.9 Anemia, unspecified; E78.49 Other hyperlipidemia; I10 Essential (primary) hypertension
CPT/HCPCS: 36415; 80053; 85025

== ENCOUNTER 2024-08-04 11:45 | Emergency (ER) | payer OTHER, SELFPAY ==
[2024-08-04] VITALS (11 sets, daily range): BP systolic 94–129; BP diastolic 49–76; PULSE 56–71; RESP 12–20; TEMP 36.7–36.9; O2SAT 95–100; BMI 23.0
--- NOTE | 2024-08-04 11:56 | ECG_ITS ---
APPROVED REPORT Exam: Resting ECG HR:62 bpm ECG Measurements Heart Rate 62 AXES MO 146 P 44 QRSd 98 QRS 270 QT 392 T 62 QTc 398 Conclusion SINUS RHYTHM INDETERMINATE AXIS POSSIBLE RIGHT VENTRICULAR HYPERTROPHY [SOME/ALL OF: PROMINENT R IN V1, LATE TRANSITION, RAD, BRAXTON, SSS] POSSIBLE ANTERIOR MYOCARDIAL INFARCTION , PROBABLY OLD [30 ms Q WAVE IN V3/V4, OR R < 0.2 mV IN V4] ABNORMAL ECG UNCONFIRMED REPORT Electronically signed by : RHODA COREA, 08/05/2024 05:14:32
--- NOTE | 2024-08-04 12:09 | CT_ITS ---
FINAL REPORT TECHNIQUE: Thin section axial CT images were performed from the lung apices to the upper abdomen after the administration of IV contrast. 3-D and MIP reconstructions performed. This study was performed with techniques to keep radiation doses as low as reasonably achievable (ALARA). Individualized dose reduction techniques using automated exposure control or adjustment of mA and/or kV according to the patient''s size were employed. CLINICAL HISTORY: blue fingers L, pain, history of ischemic stroke FINDINGS: There is a 4 mm right upper lobe nodule on image 21 of series 7. Lungs are otherwise clear. There is no pulmonary embolism. There is no aneurysm or dissection. There is no adenopathy or pleural effusion. Subclavian arteries are widely patent. There is no significant plaque disease. IMPRESSION: Unremarkable appearance of the thoracic aorta and branch vessels. No acute lung disease. 4 mm right lower lobe nodule. Recommend 6-month follow-up chest CT. Reviewed, Interpreted and Dictated by Dhiraj Santo MD Transcribed by Mel Garrison Authenticated and [facility]
--- NOTE | 2024-08-04 12:09 | CT_ITS ---
FINAL REPORT TECHNIQUE: Postcontrast axial imaging of the left upper extremity was obtained. This study was performed with techniques to keep radiation doses as low as reasonably achievable (ALARA). Individualized dose reduction techniques using automated exposure control or adjustment of mA and/or kV according to the patient's size were employed. CLINICAL HISTORY: blue fingers, history of ischemic stroke, pain FINDINGS: Left axillary and brachial arteries are patent. Distal brachial artery, along the distal humerus at the level of the elbow is poorly evaluated due to IV contrast injection obscuring arterial vasculature. No flow is seen within the radial or ulnar arteries. IMPRESSION: Findings suspicious of distal brachial artery occlusion at the level of the elbow, although poorly defined due to venous contrast-enhancement from IV access. Follow-up CTA of the left upper extremity may be considered from with injection from the right upper extremity. No distal reconstitution of flow into the forearm or wrist. Reviewed, Interpreted and Dictated by Dhiraj Santo MD Transcribed by Mel Garrison Authenticated and [facility]
--- NOTE | 2024-08-04 12:42 | ED_ITS ---
Discharge Plan Disposition Patient Disposition: Xfer Short-Term Hosp Chief Complaint: Neuro Symptoms/Deficit Prescriptions Prescriptions: No Action Mounjaro 15 mg/0.5 mL pen injector 15 mg SQ WEEKLY Patient Comments: INJECT 15 MG SUBCUTANEOUSLY EVERY WEEK pantoprazole 40 mg tablet,delayed release (DR/EC) 40 mg PO DAILY Patient Comments: TAKE ONE (1) TABLET BY MOUTH EVERY DAY clopidogrel [Plavix] 75 mg tablet 75 mg PO DAILY Patient Comments: TAKE ONE (1) TABLET BY MOUTH EVERY DAY nitroglycerin 0.4 mg tablet, sublingual 0.4 mg sublingual Q5M PRN (Reason: Chest Pain) Rx Instructions: do not exceed 3 doses per episode rosuvastatin 20 mg tablet 20 mg PO DAILY isosorbide mononitrate 60 mg tablet extended release 24 hr 60 mg PO DAILY Qty: 90 3RF ranolazine 500 mg tablet extended release 12 hr 500 mg PO BID Qty: 60 3RF aspirin 81 mg tablet,chewable 81 mg PO ONCE metformin 1,000 mg tablet 1,000 mg PO BID metoprolol tartrate 25 mg tablet 25 mg PO BID (DME) Dexcom G6 Transmitter Device See Rx Instructions .ROUTE .MEDSUPPLY Qty: 1 Patient Comments: USE DIRECTED CHANGE EVRY 90 DAYS Rx Instructions: As directed (DME) Dexcom G6 Sensor Device See Rx Instructions .ROUTE .MEDSUPPLY Qty: 1 Patient Comments: APPLY ONE (1) SENSOR EVERY 10 DAYS DIRECTED Rx Instructions: As directed duloxetine 60 mg capsule,delayed release(DR/EC) See Rx Instructions .ROUTE .COMPLEX Qty: 30 2RF Dose Instruction: TAKE ONE (1) CAPSULE BY MOUTH EVERY DAY Rx Instructions: TAKE ONE (1) CAPSULE BY MOUTH EVERY DAY Referrals Follow up/Referrals: Provider,Referral, MD [Primary Care Provider] - See instructions Clinical Impressions Clinical Impression: Pain of left upper extremity due to ischemia Print Language Print Language: Bengali Discharge ED Provider: Otoniel Millard General Adult HPI General Chief complaint: Neuro Symptoms/Deficit Stated complaint: Numbness in both middle fingers l arm pain Time Seen by Provider: 08/04/24 11:52 Mode of Arrival: Ambulatory Source of Information: Patient Description of Symptoms (Recalled from ER Triage Doc. by RN): patient states she was at her doctor 1hour ago being seen for the numbness and tingling in both of her middle fingers when both of her hands turned purple. her doctor told her to go to the er immediatley due to history of stroke 2 weeks ago. she reports that the numbness in her fingers has been happenign for years History of Present Illness HPI narrative: Please note that above description of symptoms, in this electronic medical record under categorization of recalled from ER triage doctor by RN are reflective of an initial nursing assessment, however, is not reflective of my full history and physical exam that was personally taken and clarified. Consequentially, this preceding description of symptoms, which may include the patient's categorized chief complaint in the EMR, do not reflect my personal clinical impression, and the ultimate description of history of present illness and patient stated complaints should be deferred to this section of the note. Unless stated otherwise or congruent with this section of the note, additional signs, symptoms, or incongruence should be interpreted as inaccurate with my clinical impression. Related Data Home Medications ?Medication ?Instructions ?Recorded ?Confirmed aspirin 81 mg chewable tablet 81 mg PO ONCE 09/16/17 08/03/24 metformin 1,000 mg tablet 1,000 mg PO BID 09/16/17 08/03/24 metoprolol tartrate 25 mg tablet 25 mg PO BID 09/16/17 08/03/24 clopidogrel 75 mg tablet (Plavix) 75 mg PO DAILY 12/03/23 08/03/24 nitroglycerin 0.4 mg sublingual 0.4 mg sublingual Q5M PRN Chest 12/03/23 08/03/24 tablet Pain pantoprazole 40 mg tablet,delayed 40 mg PO DAILY 12/03/23 08/03/24 release tirzepatide 15 mg/0.5 mL 15 mg SQ WEEKLY 12/03/23 08/03/24 subcutaneous pen injector (Didi) blood-glucose sensor (Dexcom G6 #1 ea 06/07/24 08/03/24 Sensor device) blood-glucose transmitter (Dexcom #1 ea 06/07/24 08/03/24 G6 Transmitter device) rosuvastatin 20 mg tablet 20 mg PO DAILY 07/20/24 08/03/24 Previous Rx's ?Medication ?Instructions ?Recorded isosorbide mononitrate 60 mg 60 mg PO DAILY #90 tabs 07/20/24 tablet,extended release 24 hr duloxetine 60 mg capsule,delayed See Rx Instructions .Route 08/03/24 release .COMPLEX #30 caps ranolazine 500 mg tablet,extended 500 mg PO BID #60 tabs 08/03/24 release,12 hr Allergies Allergy/AdvReac Type Severity Reaction Status Date / Time No Known Allergies Allergy Verified 08/03/24 12:52 [facility] Disclaimer: The information contained in this section may have been updated after the patient was seen, as this information can be updated by other users. Medical History (Updated 08/04/24 @ 15:11 by Otoniel Millard MD) History of stroke Fatigue Chest pain Abnormal findings on diagnostic imaging of heart and coronary circulation Other forms of dyspnea Arthritis Peripheral artery disease History of heart attack Hyperlipemia Diabetes type 2, controlled Heart disease Surgical History (Updated 08/03/24 @ 13:38 by Unique Yang MD) History of bariatric surgery History of cardiac cath Hx of heart artery stent Hx of breast reduction, elective History of gastric stapling Family History Other Cancer Coronary artery disease Diabetes Heart attack Hyperlipidemia Social History Smoking Status: Never smoker alcohol intake: never current occupational status: employed Travel in the last 8 weeks: None Have you lived/traveled outside [place] in past 30 days?: No Contact w/someone who lives/traveled outside US past 30 days?: No Exposure to someone with infectious disease in past 14 days?: No Do you have a fever (greater than 100.4 F or 38 C)?: No Have you tested positive for COVID-19: No Exposed to someone with COVID-19 in past 14 days?: No Do you have a sore throat?: No Do you have a cough?: No Do you have any weakness?: No Do you have any diarrhea?: No Are you experiencing any unusual bleeding?: No Do you have any muscle aches/pain?: No Do you have any abdominal pain?: No Are you experiencing loss of taste or smell?: No Other Medical History Have you received the Flu Vaccine for this season: No Have you received the Pneumonia Vaccine: No ROS Obtained: Yes All systems reviewed & no additional complaints except as documented Physical Exam General General appearance: alert Head Head exam: atraumatic and normocephalic Eye Eye exam: Present normal appearance, PERRL and EOMI Neck Neck exam: Present normal inspection, full ROM and trachea midline Respiratory Respiratory exam: Absent respiratory distress, wheezes, stridor, accessory muscle use or prolonged expiratory phase Cardiovascular Cardiovascular exam: Present other (Pulses equal symmetric in upper and lower extremities) Abdominal Exam Abdominal exam: Present soft; Absent distention, tenderness or pulsatile mass Extremities Exam Extremities exam: Absent edema Neurological Exam Neurological exam: Present alert, oriented X3 and CN II-XII intact; Absent motor sensory deficit Skin Skin exam: Present warm and dry; Absent diaphoresis or erythema Medical Decision Making Medical Records Medical records reviewed: Yes I reviewed the patient's medical records. Screening: Per USPSTF and CDC recommendations, given the prevalence of disease in our region, it is our hospital?s policy to screen for HIV and viral Hepatitis for all patients aged 18 and over and those with ongoing risk factors. Artemio Inquiry Pt receiving controlled substance: No Artemio was queried for this patient: No Vital Signs: 08/04/24 11:55 08/04/24 12:00 08/04/24 12:31 Temperature 98.0 F Temperature Source Oral Pulse Rate 66 59 L Pulse Rate [Right] 67 Respiratory Rate 15 18 15 Blood Pressure 122/67 101/60 L Blood Pressure [Right Arm] 112/76 Blood Pressure Mean 76 Blood Pressure Mean [Right Arm] 88 Blood Pressure Source [Right Arm] Automatic Cuff Blood Pressure Position [Right Arm] Sitting 02 Sat by Pulse Oximetry 100 100 100 Oxygen Delivery Method Room Air Room Air 08/04/24 13:01 08/04/24 14:00 Temperature Temperature Source Pulse Rate 71 57 L Pulse Rate [Right] Respiratory Rate 18 19 Blood Pressure 101/60 L 98/51 L Blood Pressure [Right Arm] Blood Pressure Mean Blood Pressure Mean [Right Arm] Blood Pressure Source [Right Arm] Blood Pressure Position [Right Arm] 02 Sat by Pulse Oximetry 100 100 Oxygen Delivery Method Room Air Room Air Lab Data Lab Results 08/04/24 13:10: WBC 7.7, RBC 3.95 L, Hgb 11.7 L, Hct 34.7 L, MCV 87.8, MCH 29.6, MCHC 33.7, RDW 12.4, Plt Count 258, MPV 10.1, Neut % (Auto) 53.0, Lymph % (Auto) 38.2, Garrett % (Auto) 7.2, Eos % (Auto) 0.8, Baso % (Auto) 0.5, Neut # (Auto) 4.1, Lymph # (Auto) 2.9, Garrett # (Auto) 0.6, Eos # (Auto) 0.1, Baso # (Auto) 0.0, PT 10.8, INR 0.96, APTT 23.5, Sodium 141, Potassium 4.1 D, Chloride 102, Carbon Dioxide 30, Anion Gap 13.1, BUN 20 H, Creatinine 0.90, Estimated Creat Clear 53, Estimated GFR 63, Est GFR ( Amer) 76, Glucose 103 H, Calcium 9.5, M agnesium 1.4 L, Total Bilirubin 0.4, AST 20, ALT 13, Alkaline Phosphatase 47, Troponin I < 0.01, Total Protein 7.1, Albumin 4.1 D, Globulin 3.0, Albumin/Globulin Ratio 1.4 08/04/24 13:10 08/04/24 13:10 Orders (Tests/Meds): ED MEDICATIONS Generic Name Dose Route Start Last Admin Trade Name Freq PRN Reason Stop Dose Admin Heparin Sodium (Porcine) 5,000 unit 08/04/24 15:04 Heparin Sodium 5,000 Unit/Ml Vial IV 08/04/24 15:05 ONCE ONE Miscellaneous 1 each 08/04/24 15:15 Heparin Drip Consult NOTAPPLIC 09/03/24 15:14 CONSULT PHARMACY JANET Discontinued Medications Generic Name Dose Route Start Last Admin Trade Name Freq PRN Reason Stop Dose Admin Magnesium Sulfate 2 gm in 50 mls @ 50 mls/hr 08/04/24 14:07 08/04/24 14:18 Magnesium Sulfate 2gm/50ml Premix IV 08/04/24 15:06 50 mls/hr ONCE ONE Administration Iopamidol 160 ml 08/04/24 13:31 08/04/24 13:32 Iopamidol-370 (76%);100ml Bottle IV 08/04/24 13:32 160 ml ONCE ONE Administration Magnesium Oxide 800 mg 08/04/24 14:07 08/04/24 14:18 Magnesium Oxide 400mg Tablet PO 08/04/24 14:08 800 mg ONCE ONE Administration Sodium Chloride 10 ml 08/04/24 13:31 08/04/24 13:32 Sodium Chloride 0.9% 10ml Syr (Rad Only) IV 08/04/24 13:32 10 ml ONCE ONE Administration Sodium Chloride 100 ml 08/04/24 13:31 08/04/24 13:32 0.9 % Sodium Chloride 50 Ml Vial IV 08/04/24 13:32 100 ml ONCE ONE Administration ORDERS Category Date Time Status CT angio UE LT Stat Cat Scan 08/04/24 12:[address] angio chest - dissection Stat Cat Scan 08/04/24 12:09 Completed Complete Blood Count Auto Diff Stat Lab 08/04/24 13:10 Completed Comprehensive Metabolic Panel Stat Lab 08/04/24 13:10 Completed Magnesium Stat Lab 08/04/24 13:10 Completed PT INR [Prothrombin Time INR] Stat Lab 08/04/24 13:10 Completed PTT Heparin (inpatient only) Stat Lab 08/04/24 15:04 Ordered PTT [Activated Partial Thrombo Time] Stat Lab 08/04/24 13:10 Completed Troponin I Q3H Lab 08/04/24 15:15 Ordered Troponin I Q3H Lab 08/04/24 18:15 Ordered Troponin I Stat Lab 08/04/24 13:10 Completed Medical Decision Narrative: 64-year-old female history of high tension, hyperlipidemia, CAD status post stenting, ischemic CVA currently on aspirin and Plavix presenting with left upper extremity symptoms. She states that she usually has numbness and tingling in her hands and feet, intermittent, but worsens throughout the day periodically. Nothing in particular makes it better or worse. She had 1 of these episodes today shortly before arrival, but she also had left upper extremity blue to purple discoloration that lasted a few minutes and is currently gone. States that it was also associated pain in her forearm just distal to her elbow medially. No new neurologic deficits. Came in out of abundance of caution given the constellation of symptoms and recent history. History was obtained via conversation with patient, daughter, chart review. On arrival, patient hemodynamically stable, alert, oriented x4, appropriate, GCS 15, moving all extremities spontaneously, pupils equal and reactive to light. Full physical exam performed and significant for clinically well-appearing female who is in no acute distress. Neurologically intact and at baseline. Cardiopulmonary exam without murmurs gallops or rubs, no adventitious lung sounds or abnormalities in general. Patient's neurologic exam grossly nonfocal and intact. Patient has been capillary refill, but no obvious palpable pulses. No evidence of current acral ischemia or digital ischemia. Pulses equal and symmetric in upper and lower extremities. Differential includes ischemic limb, vaso-occlusive disease, vasospastic disease, Raynaud's, temperature related skin changes, among others. Patient placed on continuous cardiac monitoring and continuous pulse ox with initial blood pressure 112/76, heart rate 67, saturation 100% on room air. Independent interpretation of EKG shows sinus rhythm 62 bpm with no acute ischemic change. HI 146, QRS 98, QTc 398. Rightward leaning axis. Patient was given heparin bolus and drip for symptomatic management and correction of underlying abnormalities. Workup independently interpreted and significant for nonactionable hematologic labs, nonactionable coags with normal kidney function. On independent interpretation of imaging, patient has intra-arterial contrast to the level of the left elbow, minimal distal reconstitution. See radiology read for full review of final results. On reevaluation, patient still has no ischemic symptoms other than mild aching pain in her left forearm. Tissue reperfusion exam performed on reevaluation she still is good capillary refill, motor function and sensation is symmetric. I contacted [facility]. Given patient presentation, workup, history, this most likely represents ischemic left upper extremity. Recommended heparin bolus and drip, this was initiated. Because patient high risk for clinical decompensation if discharged, deemed appropriate for transfer and inpatient admission. Results were relayed to patient who voiced understanding and patient was agreeable to transfer, inpatient admission, and management. Patient was graciously accepted and transferred to [facility] for further definitive management, under Dr. Ledesma. Section Leader disclaimer Much of this encounter note is an electronic air pollution compliance inspector spoken language to printed text. Electronic air pollution compliance inspector of the spoken language may permit errors. Although I have reviewed the note, some errors may still exist. Critical Care Critical Care Time Critical Care Time: Yes (vascular) Attestation: On 08/04/24, the high probability of a clinically significant, sudden or life threatening deterioration of the following system(s) required my full and direct attention, intervention and personal management. The time I documented below is in addition to time spent performing reported procedures but includes the following listed in this critical care notation. Total Time Total Critical Care Time: 45
[2024-08-04 13:21] LABS: Basophils % 0.5 % (0.1-2.0); Eosinophils # 0.1 K/mm3 (0.0-0.4); Eosinophils % 0.8 % (0.1-12.0); Hematocrit 34.7 % (37.0-47.0); Hemoglobin 11.7 g/dL (12.2-16.2); Lymphocytes # 2.9 K/mm3 (0.7-4.5); Lymphocytes % 38.2 % (10-50); Mean Corpuscular HGB Conc 33.7 g/dL (31.8-35.4); Mean Corpuscular Hemoglobin 29.6 pg (27.0-31.2); Mean Corpuscular Volume 87.8 fl (81-99); Mean Platelet Volume 10.1 fl (7.4-10.4); Monocytes # 0.6 K/mm3 (0.1-1.0); Monocytes % 7.2 % (1.7-9.3); Neutrophils # 4.1 K/mm3 (1.8-7.8); Platelet Count 258 K/mm3 (142-424); Red Blood Count 3.95 M/mm3 (4.20-5.40); Red Cell Distribution Width 12.4 % (11.5-17.5); White Blood Count 7.7 K/mm3 (4.8-10.8)
[2024-08-04] MEDS: IOPAMIDOL-370 (76%);100ML BOTTLE 160 ML IV (13:32)
[2024-08-04] MEDS: 0.9 % SODIUM CHLORIDE 50 ML VIAL 100 ML IV (13:32)
[2024-08-04] MEDS: SODIUM CHLORIDE 0.9% 10ML SYR (RAD ONLY) 10 ML IV (13:32)
[2024-08-04 13:39] LABS: Alanine Aminotransferase 13 U/L (12-78); Albumin Level 4.1 g/dl (3.5-5.0); Albumin/Globulin Ratio 1.4 (1.1-1.8); Alkaline Phosphatase 47 U/L (38-126); Anion Gap 13.1 mEq/L (5-15); Aspartate Amino Transferase 20 U/L (14-36); Bilirubin,Total 0.4 mg/dl (0.2-1.3); Blood Urea Nitrogen 20 mg/dl (7-17); Calcium 9.5 mg/dl (8.4-10.2); Carbon Dioxide 30 mmol/L (22.0-30.0); Chloride 102 mmol/L (98-107); Creatinine Clearance Estimated 53 mL/min (50-200); Estimated Glomerular Filt Rate 63 ml/min (>60); GFR (African American) 76 ML/MIN (>60); Glucose 103 mg/dl (74-100); Magnesium 1.4 mg/dl (1.6-2.3); Potassium 4.1 mmoL/L (3.5-5.1); Sodium 141 mmol/L (136-145); Total Protein,Serum 7.1 g/dl (6.3-8.2)
[2024-08-04 13:52] LABS: Troponin I < 0.01 ng/ml (0.00-0.034)
--- NOTE | 2024-08-04 14:15 | PC.NURSE ---
pt sugar appeared low. peanut butter and crackers given at this time.
[2024-08-04] MEDS: MAGNESIUM OXIDE 400MG TABLET 800 MG PO (14:18)
[2024-08-04] MEDS: MAGNESIUM SULFATE IN WATER 2 GM/50 ML PIGGYBACK IV (14:18)
[2024-08-04 14:28] LABS: Activated Partial Thrombo Time 23.5 seconds (22.8-30.6); INR 0.96 (0.9-1.1); Prothrombin Time 10.8 seconds (10.1-12.5)
--- NOTE | 2024-08-04 14:34 | PC.NURSE ---
Called and had images powershared to [facility]
--- NOTE | 2024-08-04 14:55 | PC.NURSE ---
Called [facility] to see about getting this pt transferred to Vascular Surgery for an Occlusion in Left Brachial Artery..[facility] connected with Dr Ledesma and Dr Millard is speaking with them at this time
[2024-08-04] MEDS: HEPARIN SODIUM 5,000 UNIT/ML VIAL 4700 UNIT IV (15:45)
[2024-08-04] MEDS: HEPARIN SODIUM,PORCINE/D5W 500 ML 20 UNIT IV (15:46)
--- NOTE | 2024-08-04 16:28 | PC.NURSE ---
Called [facility] to check and see about flying this pt to [facility] for pts condition
--- NOTE | 2024-08-04 16:34 | PC.NURSE ---
[employer] called back and declined flight due to weather. Called EMS and they would be here as soon as the other truck cleared.
[2024-08-04 16:54] LABS: Troponin I < 0.01 ng/ml (0.00-0.034)
== END 2024-08-04 17:15 | disposition short-term general hospital (02) ==
PROVIDERS: Emergency Medicine; Emergency Provider Emergency Medicine
DX: M79.602 Pain in left arm (principal); I99.8 Other disorder of circulatory system; R20.2 Paresthesia of skin; R23.0 Cyanosis; I63.9 Cerebral infarction, unspecified; E78.5 Hyperlipidemia, unspecified; I10 Essential (primary) hypertension; I25.10 Atherosclerotic heart disease of native coronary artery without angina pectoris; Z79.01 Long term (current) use of anticoagulants
CPT/HCPCS: 71275; 73206; 80053; 83735; 84484; 85025; 85610; 85730; 93005; 96365; 96374; 99291; J1644; J3475; Q9967

== ENCOUNTER → 2024-09-06 12:09 | Outpatient (CLI) | payer OTHER, SELFPAY | LOC: SL 12:10 | PROVIDERS: PCP Nurse Practitioner Family; Visit Provider Specialist | DX: I63.9 Cerebral infarction, unspecified (principal); R53.83 Other fatigue | CPT/HCPCS: 94762 ==

== ENCOUNTER 2024-09-14 12:40 | Outpatient (CLI) | payer OTHER, SELFPAY ==
--- NOTE | 2024-09-14 13:00 | CA_ITS ---
FINAL REPORT CLINICAL HISTORY: HTN, HLD, DM II, CVA 07/2024, CAD. Numbness in tips of fingers both hands. FINDINGS: Color Doppler, duplex Doppler and compression sonography of the bilateral upper extremity venous system was performed. There is no evidence of venous thrombosis involving the bilateral internal jugular, subclavian or axillary veins. The bilateral brachial, cephalic, radial and ulnar veins are patent without evidence of thrombosis. IMPRESSION: No evidence of venous thrombosis bilateral upper extremities. Reviewed, Interpreted and Dictated by Mk Billy MD Transcribed by Princess Dee Authenticated and [facility]
--- NOTE | 2024-09-14 13:45 | CA_ITS ---
FINAL REPORT TECHNIQUE: Axial and color Doppler waveform evaluation of the left and right upper extremity was performed. Spectral analysis was performed. CLINICAL HISTORY: HTN, HLD, DM II, CVA 07/2024, numbness in tips of bilateral fingers and hands, left fingers and hand cold and purple in color. Abnormal CT scan LUE 08/04/24. FINDINGS: Right upper extremity Velocities cm/sec: Subclavian: 85 Ask Prudencio mid: 77 Brachial proximal: 40 Brachial mid: 44 Brachial distal: 48 Radial proximal: 46 Radial mid: 56: Radial distal: 60 Ulnar proximal: 60 Ulnar mid: 44 Ulnar distal: 50 Left upper extremity Velocities cm/sec: Subclavian: 108 Ask Prudencio mid: 63 Brachial proximal: 54 Brachial mid: 60 Brachial distal: 45 Radial proximal: 48 Radial mid: 58: Radial distal: 43 Ulnar proximal: 57 Ulnar mid: 59 Ulnar distal: 56 Waveforms are biphasic and triphasic. IMPRESSION: No evidence of significant arterial stenosis. Reviewed, Interpreted and Dictated by Mk Billy MD Transcribed by Princess Dee Authenticated and [facility]
== END 2024-09-14 23:59 | disposition home or self-care (01) ==
LOC: RT 12:41
PROVIDERS: PCP Nurse Practitioner Family; Visit Provider Physician Assistant
DX: I70.218 Atherosclerosis of native arteries of extremities with intermittent claudication, other extremity (principal); R20.0 Anesthesia of skin; R20.2 Paresthesia of skin; L81.9 Disorder of pigmentation, unspecified
CPT/HCPCS: 93930; 93970